=== PATIENT | female | born 1960 | race Two or more races ===

== ENCOUNTER 2018-03-22 20:40 | Inpatient (IN) | payer SELFPAY ==
[~2018-03-22] VITALS: Ht 149.9 cm; Wt 40.6 kg
[2018-03-22 22:14] LABS: BASOPHILS % 0.9 % (0.0-2.0); EOSINOPHILS % 4.5 % (0.0-5.0); HEMATOCRIT. 35.4 % (36.0-48.0); HEMOGLOBIN. 12.3 g/dL (12.0-16.0); LYMPHOCYTES % 47.3 % (20.0-50.0); MEAN CORPUSCULAR HEMOGLOBIN 30.2 pg (28.0-32.0); MEAN CORPUSCULAR VOLUME 87.4 fL (81.0-99.0); MEAN PLATELET VOLUME 8.5 fl (7.4-10.4); MONOCYTES % 8.6 % (2.0-8.0); NEUTROPHILS % 38.7 % (40.0-76.0); PLATELET 219 x1000/uL (130-400); RED BLOOD CELL COUNT 4.05 mill/uL (4.2-5.4); RED CELL DISTRIBUTION WIDTH 12.5 % (11.6-14.6)
[2018-03-22 22:18] LABS: CHLORIDE 105 mEq/L (98-107); PROTHROMBIN TIME 10.9 sec (9.4-11.6)
[2018-03-22 23:49] LABS: *AMPHETAMINES SCREEN URINE NEGATIVE (NEGATIVE); *BARBITURATES SCREEN URINE NEGATIVE (NEGATIVE); *BENZODIAZEPINES SCREEN URINE NEGATIVE (NEGATIVE); *COCAINE SCREEN URINE NEGATIVE (NEGATIVE)
[2018-03-22 23:50] LABS: CANNABINOID URINE SCREEN NEGATIVE (NEGATIVE); METHADONE URINE SCREEN NEGATIVE (NEGATIVE); OPIATES URINE SCREEN NEGATIVE (NEGATIVE); PHENCYCLIDINE URINE SCREEN NEGATIVE (NEGATIVE)
[2018-03-23] VITALS (7 sets, daily range): BP systolic 102–120; BP diastolic 40–68
[2018-03-23] MEDS ORDERED: ASPIRIN 81MG TABLET PO ONE (00:15)
[2018-03-23] MEDS ORDERED: HYDROCODONE/ACETAMINOPHEN 5/325MG TABLET PO PRN (01:00)
[2018-03-23] MEDS ORDERED: ONDANSETRON 4MG ODT PO PRN (01:00)
[2018-03-23] MEDS ORDERED: NITROGLYCERIN 0.4MG TABLET SL SL PRN (01:00)
[2018-03-23] MEDS ORDERED: MAGNESIUM/ALUMINUM HYDROXIDE/SIMETHICONE 30ML UDC PO PRN (01:00)
[2018-03-23] MEDS ORDERED: ACETAMINOPHEN 325MG TABLET PO PRN (01:00)
[2018-03-23] MEDS ORDERED: HYDROCODONE/ACETAMINOPHEN 10/325MG TABLET PO PRN (01:00)
[2018-03-23] MEDS ORDERED: CLONIDINE 0.1MG TABLET PO PRN (01:00)
[2018-03-23] MEDS ORDERED: DIPHENHYDRAMINE 50MG/ML VIAL IV PRN (01:00)
[2018-03-23] MEDS ORDERED: MORPHINE SULFATE 4 MG/ML CPJ (NOT FOR IM USE) IV PRN (01:00)
[2018-03-23] MEDS ORDERED: ACETAMINOPHEN 650MG/20.3ML UDC GT PRN (01:00)
[2018-03-23] MEDS ORDERED: ACETAMINOPHEN 650MG SUPP PR PRN (01:00)
[2018-03-23] MEDS ORDERED: NA PHOS,M-B/NA PHOS,DI-BA ENEMA 118ML PR PRN (01:00)
[2018-03-23] MEDS ORDERED: IPRATROPIUM/ALBUTEROL 0.5-3(2.5)MG/3ML NEB INH PRN (01:00)
[2018-03-23] MEDS: SODIUM CHLORIDE 0.9% INJ 3ML FLUSH IVF SCH ×3 (06:59→20:33)
[2018-03-23] MEDS: ENOXAPARIN 40MG/0.4ML SYR SUBCUT SCH (09:15)
[2018-03-23 11:39] LABS: CLARITY URINE CLEAR (CLEAR); COLOR URINE YELLOW (YELLOW); KETONES URINE NEGATIVE (NEGATIVE); LEUKOCYTE ESTERASE URINE NEGATIVE (NEGATIVE); NITRITE URINE NEGATIVE (NEGATIVE); OCCULT BLOOD URINE NEGATIVE (NEGATIVE); PROTEIN URINE NEGATIVE (NEGATIVE); SPECIFIC GRAVITY URINE 1.009 (1.005-1.030); UROBILINOGEN URINE 0.2 E.U./dL (0.2-1.0)
[2018-03-23 11:52] LABS: *AMPHETAMINES SCREEN URINE NEGATIVE (NEGATIVE); *BARBITURATES SCREEN URINE NEGATIVE (NEGATIVE); *COCAINE SCREEN URINE NEGATIVE (NEGATIVE); METHADONE URINE SCREEN NEGATIVE (NEGATIVE); OPIATES URINE SCREEN NEGATIVE (NEGATIVE)
[2018-03-23 11:54] LABS: *BENZODIAZEPINES SCREEN URINE NEGATIVE (NEGATIVE); CANNABINOID URINE SCREEN NEGATIVE (NEGATIVE); PHENCYCLIDINE URINE SCREEN NEGATIVE (NEGATIVE)
[2018-03-23 12:07] LABS: BASOPHILS % 0.8 % (0.0-2.0); EOSINOPHILS % 4.8 % (0.0-5.0); LYMPHOCYTES % 37.8 % (20.0-50.0); MEAN CORPUSCULAR HEMOGLOBIN 30.3 pg (28.0-32.0); MEAN CORPUSCULAR VOLUME 88.4 fL (81.0-99.0); MEAN PLATELET VOLUME 8.6 fl (7.4-10.4); MONOCYTES % 8.1 % (2.0-8.0); NEUTROPHILS % 48.5 % (40.0-76.0); PLATELET 228 x1000/uL (130-400); RED CELL DISTRIBUTION WIDTH 12.9 % (11.6-14.6)
[2018-03-23 12:11] LABS: CHLORIDE 109 mEq/L (98-107)
[2018-03-23 12:18] LABS: LDL CHOLESTEROL 127 mg/dL (5-100)
[2018-03-23 12:19] LABS: CREATINE KINASE 100 IU/L (26-192); HDL CHOLESTEROL 62 mg/dL (40-59)
[2018-03-23 12:23] LABS: CREATINE KINASE MB FRACTION 1.3 ng/mL (0.5-3.6)
[2018-03-23] MEDS: ASPIRIN 81MG EC TABLET PO SCH (14:59)
[2018-03-23 17:05] LABS: CREATINE KINASE 84 IU/L (26-192)
[2018-03-23 17:07] LABS: CREATINE KINASE MB FRACTION 1.1 ng/mL (0.5-3.6)
[2018-03-23] MEDS ORDERED: ATORVASTATIN CALCIUM 10MG TABLET PO SCH (21:00)
[2018-03-24] VITALS: BP 114/53
[2018-03-24 04:00] VITALS: BP 101/61
[2018-03-24 05:46] LABS: BASOPHILS % 0.8 % (0.0-2.0); HEMATOCRIT. 36.5 % (36.0-48.0); HEMOGLOBIN. 12.4 g/dL (12.0-16.0); MEAN CORPUSCULAR HEMOGLOBIN 29.9 pg (28.0-32.0); MEAN CORPUSCULAR VOLUME 88.6 fL (81.0-99.0); MEAN PLATELET VOLUME 8.3 fl (7.4-10.4); MONOCYTES % 7.7 % (2.0-8.0); NEUTROPHILS % 42.5 % (40.0-76.0); PLATELET 204 x1000/uL (130-400); RED BLOOD CELL COUNT 4.13 mill/uL (4.2-5.4); RED CELL DISTRIBUTION WIDTH 12.6 % (11.6-14.6)
[2018-03-24] MEDS: SODIUM CHLORIDE 0.9% INJ 3ML FLUSH IVF SCH (06:00)
[2018-03-24 06:23] LABS: CHLORIDE 109 mEq/L (98-107)
[2018-03-24 06:31] LABS: HDL CHOLESTEROL 54 mg/dL (40-59)
[2018-03-24 06:49] LABS: LDL CHOLESTEROL 106 mg/dL (5-100)
[2018-03-24 08:00] VITALS: BP 94/46
[2018-03-24] MEDS: ENOXAPARIN 40MG/0.4ML SYR SUBCUT SCH (09:14)
[2018-03-24] MEDS: ASPIRIN 81MG EC TABLET PO SCH (09:14)
[2018-03-24] MEDS ORDERED: ATOR10TA PO (11:56)
[2018-03-24] MEDS ORDERED: ASPI-1158 PO (11:56)
[2018-03-24 12:00] VITALS: BP 99/52
[2018-03-24 13:44] VITALS: BP 99/52
== END 2018-03-24 16:16 | disposition home or self-care (01) | DRG 203 ==
LOC: ER 20:40 → 7WST 03-23 00:08 → EDBEDREQTM 03-23 00:11 → EDBEDREQ 03-23 00:11 → ENRESERV 03-23 00:21 → 7WST 03-23 03:10
PROVIDERS: ADMIT Family Medicine; ATTEND Family Medicine
DX: R07.89 Other chest pain (principal); E78.5 Hyperlipidemia, unspecified; R73.9 Hyperglycemia, unspecified; Z82.49 Family history of ischemic heart disease and other diseases of the circulatory system
CPT/HCPCS: 36415; 71045; 80053; 80061; 80305; 81003; 82550; 82553; 83036; 83880; 84443; 84484; 85025; 85610; 93005; 99285; J1650

== ENCOUNTER → 2019-09-19 | Outpatient (CLI) | payer BC ==
[~2019-09-19] MED LIST: ASPI-1158 PO; ATOR10TA PO
[2019-09-19 12:45] LABS: EOSINOPHILS % 2.7 % (0.0-5.0); HEMATOCRIT. 37.2 % (36.0-48.0); HEMOGLOBIN. 12.5 g/dL (12.0-16.0); LYMPHOCYTES % 40.1 % (20.0-50.0); MEAN CORPUSCULAR HEMOGLOBIN 30.1 pg (28.0-32.0); MEAN CORPUSCULAR VOLUME 89.1 fL (81.0-99.0); MEAN PLATELET VOLUME 8.3 fl (7.4-10.4); MONOCYTES % 8.5 % (2.0-8.0); NEUTROPHILS % 47.7 % (40.0-76.0); PLATELET 212 x1000/uL (130-400); RED BLOOD CELL COUNT 4.17 mill/uL (4.2-5.4); RED CELL DISTRIBUTION WIDTH 12.9 % (11.6-14.6)
[2019-09-19 12:50] LABS: CLARITY URINE CLEAR (CLEAR); COLOR URINE YELLOW (YELLOW); KETONES URINE NEGATIVE (NEGATIVE); LEUKOCYTE ESTERASE URINE NEGATIVE (NEGATIVE); NITRITE URINE NEGATIVE (NEGATIVE); OCCULT BLOOD URINE NEGATIVE (NEGATIVE); PROTEIN URINE NEGATIVE (NEGATIVE); SPECIFIC GRAVITY URINE 1.005 (1.005-1.030); UROBILINOGEN URINE 0.2 E.U./dL (0.2-1.0)
[2019-09-19 12:55] LABS: CHLORIDE 108 mEq/L (98-107)
[2019-09-19 13:01] LABS: LDL CHOLESTEROL 110 mg/dL (5-100)
[2019-09-19 13:03] LABS: HDL CHOLESTEROL 70 mg/dL (40-59)
[2019-09-19 16:05] LABS: FERRITIN 52 ng/mL (10-291)
[2019-09-19 17:48] LABS: FOLIC ACID (FOLATE) SERUM >20 ng/mL ng/mL (>5.38)
[2019-09-19 18:00] LABS: VITAMIN B12 SERUM 1544 pg/mL (211-911)
[2019-09-20 11:31] LABS: RHEUMATOID FACTOR SCREEN POSITIVE (NEGATIVE)
== END | disposition home or self-care (01) ==
LOC: LAB 12:01
PROVIDERS: ATTEND Internal Medicine Geriatric Medicine
DX: Z13.220 Encounter for screening for lipoid disorders (principal); Z13.0 Encounter for screening for diseases of the blood and blood-forming organs and certain disorders involving the immune mechanism; Z13.1 Encounter for screening for diabetes mellitus; N39.0 Urinary tract infection, site not specified
CPT/HCPCS: 36415; 80053; 80061; 81003; 82607; 82728; 82746; 83036; 83540; 84443; 85025; 85651; 86038; 86430; 86592; 86850; 86870; 86900

== ENCOUNTER → 2019-10-10 | Outpatient (CLI) | payer BC | END | disposition home or self-care (01) | LOC: US 07:10 | PROVIDERS: ATTEND Internal Medicine Geriatric Medicine | DX: Z12.31 Encounter for screening mammogram for malignant neoplasm of breast (principal); R74.0 Nonspecific elevation of levels of transaminase and lactic acid dehydrogenase [LDH] | CPT/HCPCS: 76700; 77067 ==

== ENCOUNTER → 2019-10-18 | Outpatient (CLI) | payer BC ==
[2019-10-18 08:01] LABS: CHLORIDE 107 mEq/L (98-107)
[2019-10-18 08:11] LABS: T4 FREE 0.75 ng/dL (0.76-1.46)
[2019-10-18 12:18] LABS: HEPATITIS B SURFACE AB < 3.1 mIU/mL
[2019-10-18 12:28] LABS: HEPATITIS B SURFACE ANTIGEN NEGATIVE
[2019-10-18 12:58] LABS: HEPATITIS A AB IGM NEGATIVE (NEGATIVE)
== END | disposition home or self-care (01) ==
LOC: LAB 07:14
PROVIDERS: ATTEND Internal Medicine Geriatric Medicine
DX: E03.9 Hypothyroidism, unspecified (principal); R74.0 Nonspecific elevation of levels of transaminase and lactic acid dehydrogenase [LDH]
CPT/HCPCS: 36415; 80053; 84436; 84439; 84443; 86705; 86706; 86709; 86803; 87340

== ENCOUNTER → 2019-10-24 | Outpatient (CLI) | payer BC | END | disposition home or self-care (01) | LOC: MAMMO 07:19 | PROVIDERS: ATTEND Internal Medicine Geriatric Medicine | DX: R92.8 Other abnormal and inconclusive findings on diagnostic imaging of breast (principal); N64.9 Disorder of breast, unspecified | CPT/HCPCS: 76641; 77065 ==

== ENCOUNTER → 2019-11-29 | Outpatient (CLI) | payer BC ==
[2019-11-29 11:15] LABS: CHLORIDE 107 mEq/L (98-107)
[2019-11-29 11:25] LABS: T4 FREE 0.85 ng/dL (0.76-1.46)
[2019-12-02 19:06] LABS: ANTI-NUCLEAR ANTIBODIES DIRECT Positive (Negative)
== END | disposition home or self-care (01) ==
LOC: LAB 11-27 09:12
PROVIDERS: ATTEND Internal Medicine Geriatric Medicine
DX: I10 Essential (primary) hypertension (principal); M15.9 Polyosteoarthritis, unspecified; R94.8 Abnormal results of function studies of other organs and systems
CPT/HCPCS: 36415; 80053; 82248; 84436; 84439; 84443; 84460; 84479; 85651; 86038